=== PATIENT | male | born 1995 | race Asian ===

== ENCOUNTER 2021-11-28 17:33 | Emergency (ER) | payer OTHER ==
[~2021-11-28] VITALS: Ht 177.8 cm; Wt 99.8 kg
== END 2021-11-28 18:21 | disposition home or self-care (01) ==
LOC: EDBD 17:33 → ER 17:33
DX: S60.222A Contusion of left hand, initial encounter (principal); W22.8XXA Striking against or struck by other objects, initial encounter
CPT/HCPCS: 73130; 99283-25

== ENCOUNTER 2023-05-13 20:40 | Emergency (ER) | payer MEDICAID ==
[~2023-05-13] VITALS: Ht 177.8 cm; Wt 99.8 kg
[2023-05-13 20:46] VITALS: BP 139/91
== END 2023-05-13 22:50 | disposition home or self-care (01) ==
LOC: ER 20:40
DX: S91.311A Laceration without foreign body, right foot, initial encounter (principal); W25.XXXA Contact with sharp glass, initial encounter
CPT/HCPCS: 12002; 90471; 90714; 90715; 99282-25

== ENCOUNTER 2023-05-15 23:14 | Emergency (ER) | payer MEDICAID ==
[~2023-05-15] VITALS: Ht 177.8 cm; Wt 99.8 kg
[2023-05-15 23:40] VITALS: BP 133/85
[2023-05-16] MEDS ORDERED: Bactrim Ds Tab1 EACH PO (01:54)
== END 2023-05-16 01:59 | disposition home or self-care (01) ==
LOC: ER 23:14
DX: S91.311D Laceration without foreign body, right foot, subsequent encounter (principal); L08.9 Local infection of the skin and subcutaneous tissue, unspecified; W25.XXXD Contact with sharp glass, subsequent encounter
CPT/HCPCS: 99282; A9270

== ENCOUNTER 2023-05-17 23:19 | Emergency (ER) | payer MEDICAID ==
[~2023-05-17] VITALS: Ht 177.8 cm; Wt 99.8 kg
[~2023-05-17 23:19] MED LIST: Bactrim Ds Tab1 EACH PO
[2023-05-17 23:34] VITALS: BP 154/80
[2023-05-18] MEDS ORDERED: CLIN300 PO (00:24)
== END 2023-05-18 00:37 | disposition home or self-care (01) ==
LOC: ER 23:19
DX: L27.0 Generalized skin eruption due to drugs and medicaments taken internally (principal); S91.311D Laceration without foreign body, right foot, subsequent encounter; T36.8X5A Adverse effect of other systemic antibiotics, initial encounter; X58.XXXD Exposure to other specified factors, subsequent encounter
CPT/HCPCS: 73630; 99283-25; A9270

== ENCOUNTER 2023-05-24 22:47 | Emergency (ER) | payer MEDICAID ==
[~2023-05-24] VITALS: Ht 177.8 cm; Wt 99.8 kg
[~2023-05-24 22:47] MED LIST changes: +CLIN300 PO
[2023-05-24 22:52] VITALS: BP 158/109
== END 2023-05-24 22:56 | disposition home or self-care (01) ==
LOC: ER 22:47
DX: S91.311D Laceration without foreign body, right foot, subsequent encounter (principal); Z48.02 Encounter for removal of sutures; Z88.2 Allergy status to sulfonamides; W25.XXXD Contact with sharp glass, subsequent encounter
CPT/HCPCS: 99281

== ENCOUNTER 2024-04-08 00:23 | Emergency (ER) | payer OTHER ==
[~2024-04-08] VITALS: Ht 175.3 cm; Wt 95.2 kg
[2024-04-08 00:38] VITALS: BP 146/100
[2024-04-08] MEDS ORDERED: FentaNYL Citrate 50 MCG/ML 2 ML Injection IV ONE ×2 (00:45→04:50)
[2024-04-08] MEDS ORDERED: Ondansetron HCl 2 MG / ML 2ML Vial IV ONE (04:50)
[2024-04-08] MEDS ORDERED: RX Prepack 6 Tabs Oxycodone 5mg UD ONE (05:40)
== END 2024-04-08 06:04 | disposition home or self-care (01) ==
LOC: ER 00:23
DX: S51.812A Laceration without foreign body of left forearm, initial encounter (principal); S41.112A Laceration without foreign body of left upper arm, initial encounter; R07.89 Other chest pain; V40.5XXA Car driver injured in collision with pedestrian or animal in traffic accident, initial encounter; Z88.1 Allergy status to other antibiotic agents
CPT/HCPCS: 12037; 71045; 96374-59; 96375-59; 96376-59; 99284-25; A9270; J2405; J3010